=== PATIENT | female | born 1960 | race Caucasian/White ===

== ENCOUNTER 2018-06-30 11:18 | Emergency (ER) | payer MEDICAID, OTHER ==
[2018-06-30 11:32] VITALS: BMI 32.1
--- NOTE | 2018-06-30 12:25 | C.PDOC ---
History Of Present Illness 58 y/o female presents to the ER complaining of chills, sore throat, body aches, left sided facial swelling, weakness, and dizziness which has been present for the past few days. Patient states that she began feeling nauseous in the morning today.Patient denies having fever, CP, SOB, vomiting, tooth pain, and recent dental workup. <Tawana Interiano - Last Filed: 06/30/18 19:00> History Per: Patient History/Exam Limitations: no limitations Onset/Duration Of Symptoms: Days Current Symptoms Are (Timing): Still Present Severity: Moderate <Tawana Interiano - Last Filed: 06/30/18 19:00> <Ankit Aguirre - Last Filed: 06/30/18 21:37> Time Seen by Provider: 06/30/18 12:00 Chief Complaint (Nursing): Dizziness/Lightheaded Past Medical History Reviewed: Historical Data, Nursing Documentation, Vital Signs Vital Signs: Last Vital Signs Temp 99.3 F 06/30/18 11:55 Pulse 102 H 06/30/18 11:55 Resp 16 06/30/18 11:55 BP 154/72 H 06/30/18 11:55 Pulse Ox 97 06/30/18 11:55 - Medical History PMH: Diabetes, HTN, Hypercholesterolemia, Hyperlipidemia Denies: Chronic Kidney Disease Other Surgeries: Hx of surgeries - [facility] Procedures EXTRACTION OF LEFT FOOT SKIN, EXTERNAL APPROACH (08/07/15) FLUOROSCOPY OF SUPERIOR VENA CAVA, GUIDANCE (08/07/15) INSERTION OF INFUSION DEV INTO SUP VENA CAVA, PERC APPROACH (08/07/15) INTRODUCE OTH ANTI-INFECT IN CENTRAL VEIN, PERC (08/07/15) INTRODUCTION OF SERUM/TOX/VACCINE INTO MUSCLE, PERC APPROACH (08/07/15) PHYSICAL THERAPY NEC (11/01/14) Family History: States: No Known Family Hx - Social History Hx Tobacco Use: No Hx Alcohol Use: No Hx Substance Use: No - Immunization History Hx Tetanus Toxoid Vaccination: No Hx Influenza Vaccination: No Hx Pneumococcal Vaccination: No <Tawana Interiano - Last Filed: 06/30/18 19:00> Vital Signs: Last Vital Signs Temp 99.2 F 06/30/18 18:36 Pulse 92 H 06/30/18 20:21 Resp 18 06/30/18 18:36 BP 116/94 H 06/30/18 20:21 Pulse Ox 97 06/30/18 20:21 - [facility] Procedures EXTRACTION OF LEFT FOOT SKIN, EXTERNAL APPROACH (08/07/15) FLUOROSCOPY OF SUPERIOR VENA CAVA, GUIDANCE (08/07/15) INSERTION OF INFUSION DEV INTO SUP VENA CAVA, PERC APPROACH (08/07/15) INTRODUCE OTH ANTI-INFECT IN CENTRAL VEIN, PERC (08/07/15) INTRODUCTION OF SERUM/TOX/VACCINE INTO MUSCLE, PERC APPROACH (08/07/15) PHYSICAL THERAPY NEC (11/01/14) <Ankit Aguirre - Last Filed: 06/30/18 21:37> Review Of Systems Except As Marked, All Systems Reviewed And Found Negative. Constitutional: Positive for: Chills, Weakness, Malaise. Negative for: Fever ENT: Positive for: Throat Pain. Negative for: Mouth Pain Cardiovascular: Negative for: Chest Pain Respiratory: Negative for: Shortness of Breath Gastrointestinal: Positive for: Nausea. Negative for: Vomiting, Abdominal Pain Skin: Positive for: Other (left sided facial swelling) Neurological: Positive for: Dizziness <Tawana Interiano - Last Filed: 06/30/18 19:00> Physical Exam - Physical Exam Appears: Non-toxic, No Acute Distress Skin: Normal Color, Warm, Dry Head: Normacephalic, Swelling (mild swelling along left cheek and jowl, no mell thema, no increased warmth) Eye(s): bilateral: Normal Inspection Nose: Normal Oral Mucosa: Moist Tongue: Normal Appearing Lips: Normal Appearing Teeth: No Tender To Palpation Gingiva: Normal Appearing Neck: Supple Chest: Symmetrical Cardiovascular: Rhythm Regular Respiratory: Normal Breath Sounds, No Rales, No Rhonchi, No Wheezing Gastrointestinal/Abdominal: Normal Exam, Soft, No Tenderness, No Guarding, No Rebound Neurological/Psych: Oriented x3, Normal Speech <Tawana Interiano - Last Filed: 06/30/18 19:00> ED Course And Treatment - Laboratory Results Result Diagrams: 06/30/18 14:09 06/30/18 14:09 O2 Sat by Pulse Oximetry: 97 (RA) Pulse Ox Interpretation: Normal <Tawana Interiano - Last Filed: 06/30/18 19:00> - Laboratory Results Result Diagrams: 06/30/18 14:09 06/30/18 14:09 Lab Results: Troponin I < 0.0120 ng/mL (0.00-0.120) 06/30/18 14:09 Total Bilirubin 0.4 mg/dL (0.2-1.3) 06/30/18 14:09 AST 14 U/L (14-36) 06/30/18 14:09 ALT 25 U/L (9-52) 06/30/18 14:09 Alkaline Phosphatase 96 U/L (38-126) 06/30/18 14:09 Total Protein 6.3 g/dL (6.3-8.3) 06/30/18 14:09 Albumin 3.7 g/dL (3.5-5.0) 06/30/18 14:09 Globulin 2.6 gm/dL (2.2-3.9) 06/30/18 14:09 Albumin/Globulin Ratio 1.4 (1.0-2.1) 06/30/18 14:09 Urine Color Straw (YELLOW) 06/30/18 14:09 Urine Clarity Clear (Clear) 06/30/18 14:09 Urine pH 6.0 (5.0-8.0) 06/30/18 14:09 Ur Specific [place] 1.026 (1.003-1.030) 06/30/18 14:09 Urine Protein Negative mg/dL (NEGATIVE) 06/30/18 14:09 Urine Glucose (UA) 3+ mg/dL (Normal) H 06/30/18 14:09 Urine Ketones Negative mg/dL (NEGATIVE) 06/30/18 14:09 Urine Blood Negative (NEGATIVE) 06/30/18 14:09 Urine Nitrate Negative (NEGATIVE) 06/30/18 14:09 Urine Bilirubin Negative (NEGATIVE) 06/30/18 14:09 Urine Urobilinogen Normal mg/dL (0.2-1.0) 06/30/18 14:09 Ur Leukocyte Esterase Neg Jose/uL (Negative) 06/30/18 14:09 Urine WBC (Auto) < 1 /hpf (0-5) 06/30/18 14:09 Urine RBC (Auto) < 1 /hpf (0-3) 06/30/18 14:09 Pulse Ox Interpretation: Normal Progress Note: pt feels better and wants to go home. Will follow up with her pmd Reevaluation Time: 21:32 Reassessment Condition: Improved <Ankit Aguirre - Last Filed: 06/30/18 21:37> Medical Decision Making Medical Decision Making: Plan: --Labs --UA --CXR --IV Fluids <Tawana Interiano - Last Filed: 06/30/18 19:00> Disposition <Tawana Interiano - Last Filed: 06/30/18 19:00> Counseled Patient/Family Regarding: Studies Performed, Diagnosis, Need For Followup, Rx Given - Disposition Disposition Time: 19:00 <Ankit Aguirre - Last Filed: 06/30/18 21:37> - Disposition Referrals: Tania Elizondo [Staff Provider] - Disposition: HOME/ ROUTINE Condition: FAIR Additional Instructions: Regrese si los sntomas recurren, o si larios aumentado el dolor, enrojecimiento, estras o simplemente no se siente christy Prescriptions: Clindamycin [Cleocin] 300 mg PO TID #21 cap Penicillin VK [Penicillin VK Tab] 2 tab PO BID #28 tab Instructions: Cellulitis (Skin Infection), Adult (DC) Forms: uMentioned (Italian) Print Language: MALTESE - Clinical Impression Clinical Impression: Dizziness, Cellulitis - Scribe Statement The provider has reviewed the documentation as recorded by the Suresh Austin Provider Attestation: All medical record entries made by the Monishaibdavis were at my direction and personally dictated by me. I have reviewed the chart and agree that the record accurately reflects my personal performance of the history, physical exam, medical decision making, and the department course for this patient. I have also personally directed, reviewed, and agree with the discharge instructions and disposition. <Tawana Interiano - Last Filed: 06/30/18 19:00> Physician Patient Turnover Patient Signed Over To: Ankit Aguirre Handoff Comments: pending CT and dispo <Tawana Interiano - Last Filed: 06/30/18 19:00>
[2018-06-30] MEDS ORDERED: Sodium Chloride 0.9% 1,000 ML IV ONE (13:37)
[2018-06-30] MEDS ORDERED: Sodium Chloride 0.9% 1,000 ML ONE (14:10)
[2018-06-30 14:18] LABS: BASO # 0.1 K/uL (0.0-0.2); HEMOGLOBIN 11.1 g/dL (11.0-16.0); LYMPH # 0.7 K/uL (1.0-4.3); MEAN CORPUSCULAR HGB CONC 32.5 g/dL (33.0-37.0); RBC 3.85 Mil/uL (3.80-5.20); RED CELL DISTRIBUTION WIDTH 14.3 % (11.5-14.5); WHITE BLOOD COUNT 7.6 K/uL (4.8-10.8)
[2018-06-30 14:19] LABS: BASO % 0.8 % (0.0-2.0); EOS % 0.5 % (0.0-4.0); MEAN CELL VOLUME 88.9 fL (81.0-99.0); MEAN CORPUSCULAR HEMOGLOBIN 28.9 pg (27.0-31.0); MEAN PLATELET VOLUME 11.2 fL (7.2-11.7); MONO # 0.4 K/uL (0.0-0.8); MONO % 5.1 % (0.0-10.0); NEUT # 6.4 K/uL (1.8-7.0); NEUT % 84.6 % (50.0-75.0); NRBC % 0.1 % (0.0-2.0)
[2018-06-30 14:21] LABS: PLATELET COUNT 153 K/uL (130-400); URINE BILIRUBIN NEGATIVE (NEGATIVE); URINE BLOOD NEGATIVE (NEGATIVE); URINE CLARITY Clear (Clear); URINE COLOR Straw (YELLOW); URINE GLUCOSE (UA) 3+ mg/dL (Normal); URINE LEUKOCYTE ESTERASE NEG Leu/uL (Negative); URINE PROTEIN NEGATIVE (NEGATIVE); URINE UROBILINOGEN NORMAL mg/dL (0.2-1.0)
[2018-06-30 15:08] LABS: BANDS 5 % (0-2); EOSINOPHIL 1 % (0-4); LYMPHOCYTE 9 % (20-40); MONOCYTE 4 % (0-10); NEUTROPHIL 81 % (50-75); TOTAL CELLS COUNTED 100
[2018-06-30 15:10] LABS: PLATELET ESTIMATE NORMAL (NORMAL)
--- NOTE | 2018-06-30 15:39 | RAD ---
Date of service: 06/30/2018 PROCEDURE: CHEST RADIOGRAPH, 1 VIEW HISTORY: chest pain COMPARISON: None available. FINDINGS: LUNGS: No consolidation. Inspiration shallow PLEURA: No pneumothorax or pleural fluid seen. CARDIOVASCULAR: There is presence of aortic atherosclerotic calcification on x-ray. Probable top-normal heart size. Probable top-normal pulmonary vasculature OSSEOUS STRUCTURES: No significant abnormalities. VISUALIZED UPPER ABDOMEN: Normal. OTHER FINDINGS: None. IMPRESSION: Probable top-normal heart size and top-normal pulmonary vasculature. No consolidation effusion or pneumothorax seen.
[2018-06-30 15:53] LABS: ALB/GLOB RATIO 1.4 (1.0-2.1); ALBUMIN 3.7 g/dL (3.5-5.0); ALT/SGPT 25 U/L (9-52); AST/SGOT 14 U/L (14-36); BLOOD UREA NITROGEN 24 mg/dL (7-17); CALCIUM 8.4 mg/dl (8.6-10.4); GFR NON-AFRICAN AMERICAN > 60
[2018-06-30] MEDS ORDERED: (Novolin R) Insulin Human Regular 100 units/ml vial IVP ONE (16:23)
[2018-06-30] MEDS ORDERED: Iohexol 350mg/ml 100 ML ONE (17:42)
[2018-06-30 18:38] VITALS: RESP 18
[2018-06-30] MEDS ORDERED: Clindamycin 300 MG in Sodium Chloride 0.9% 50 ML IVPB STA (19:55)
[2018-06-30] MEDS ORDERED: Piperacillin/Tazobact 3.375 GM in Sodium Chloride 100 ML IVPB STA (19:56)
[2018-06-30] MEDS ORDERED: Piperacillin/Tazobact 3.375 gm 100 ML IVPB ONE (20:35)
[2018-06-30] MEDS ORDERED: Clindamycin 600mg/50ml NS 600 MG/50 ML BAG IVPB ONE (20:41)
[2018-06-30 22:12] VITALS: TEMP 101
[2018-06-30 22:13] VITALS: BP 122/80; PULSE 104; O2SAT 96
--- NOTE | 2018-07-01 09:37 | CT ---
Date of service: 06/30/2018 PROCEDURE: CT MAXILLOFACIAL BONES WITH CONTRAST HISTORY: facial swelling COMPARISON: None. TECHNIQUE: Contiguous axial CT images of the maxillofacial bones were obtained following administration of IV contrast. Coronal and sagittal reformats were generated. Intravenous contrast Dose: 100 mL Omnipaque 350 Radiation dose: Total exam DLP = 912.67 mGy-cm. This CT exam was performed using one or more of the following dose reduction techniques: Automated exposure control, adjustment of the mA and/or kV according to patient size, and/or use of iterative reconstruction technique. FINDINGS: NASAL BONES: Normal in appearance. ORBITS: Symmetric and normal in appearance. PARANASAL SINUSES/ MASTOIDS: Predominantly clear. MAXILLA: Normal. There is mild left facial soft tissue swelling. MANDIBLE/ TEMPOROMANDIBULAR JOINTS: Unremarkable. SKULL BASE: Unremarkable. TEMPORAL BONES: Middle ears and mastoid grossly unremarkable. OTHER FINDINGS: None. IMPRESSION: Mild left facial soft tissue swelling. No evidence for sinusitis, cellulitis or abscess. A preliminary report was provided by [employer].
--- NOTE | 2018-07-02 21:28 | CARD ---
APPROVED REPORT Date of service: 06/30/2018 EKG Measurement Heart [id number] <Conclusion> Normal sinus rhythm Possible Left atrial enlargement Borderline ECG
== END 2018-06-30 22:12 | disposition home or self-care (01) ==
LOC: C.ER 11:18
DX: R42 Dizziness and giddiness (principal); L03.90 Cellulitis, unspecified; E11.9 Type 2 diabetes mellitus without complications; E78.00 Pure hypercholesterolemia, unspecified; I10 Essential (primary) hypertension
CPT/HCPCS: 70481; 71045; 80053; 81001; 82948; 84484; 85025; 87040; 96361; 96365; 96367; 99285; J2543; J7030; Q9967